=== PATIENT | male | born 1975 | race Caucasian/White ===

== ENCOUNTER → 2017-02-17 | Outpatient (CLI) | payer MEDICARE, OTHER ==
[2016-07-17 18:40] VITALS: BP 204/96
[~2017-02-17] MED LIST: ALPR0.5T PO; AMLO10TA2 PO; ASPI81TA44 PO; CLON0.5T3 PO; CYAN1TAB19 PO; ESCI20TA PO; HYDR-2666 PO; LEVO50TA5 PO; LOSA100T6 PO; METO50TA2 PO; MIRT15TA3 PO; MULT1TAB90 PO; OXYC-323 PO; SIMV40TA3 PO
--- NOTE | 2017-02-17 15:40 | KCIC ---
PQRS STATEMENT: One or more of the following in the visualized dose reduction techniques were utilized for this study: 1. Automatic exposure control, 2. Adjustment of the mA and/or kV according to patient size, 3. Use of iterative reconstruction technique CT HEAD INDICATION: Hydrocephalus COMPARISON: 01/02/2016 and 07/17/2015 TECHNIQUE: 5 mm contiguous axial images were obtained from the skull base to the vertex in both bone and soft tissue algorithm. FINDINGS: A right frontal ventricular catheter remains in stable positioning extending through the right frontal horn and foramen of Trivedi. The ventricles are unchanged in size and within normal limits. There are posterior changes of a a suboccipital craniectomy. There is no acute intracranial hemorrhage. No midline shift or mass effect. Basal cisterns are patent. Globes and orbits are within normal limits. Visualized paranasal sinuses and mastoid air cells are clear. IMPRESSION: No evidence for acute intracranial hemorrhage, mass effect, or hydrocephalus. Stable positioning of the right transforaminal ventriculostomy shunt catheter. Electronically signed by: Ede Bennett MD (02/17/2017 3:37 PM)
--- NOTE | 2017-02-17 15:42 | KCIC ---
Two view chest indication: Shunt series, headache Findings: There is a catheter overlying the right anterior chest wall shows no evidence for kinking or discontinuity. No shunt catheter is also noted which shows some surrounding calcification. Heart size is normal. Lungs are clear. IMPRESSION: No evidence for kinking or discontinuity of the ventriculostomy shunt catheter. Electronically signed by: Ede Bennett MD (02/17/2017 3:39 PM)
--- NOTE | 2017-02-17 15:43 | KCIC ---
AP and lateral skull INDICATION: Headache, shunt series FINDINGS: There is a right transfrontal ventricular ostomy shunt catheter that terminates near midline. The extracranial portions demonstrate no evidence for discontinuity or kinking. An old shunt catheter remnant is also noted in the soft tissues of the neck. IMPRESSION: No evidence for kinking or discontinuity of the ventriculostomy shunt catheter. Electronically signed by: Ede Bennett MD (02/17/2017 3:40 PM)
--- NOTE | 2017-02-17 15:46 | KCIC ---
ABDOMEN AP Clinical Indication: Shunt series. Headache. Comparison: None. Findings: There is shunt catheter coursing in the right abdomen extending into the pelvis. Distal catheter is coiled on itself. There is a second catheter that is just to the right of midline and terminates in the upper abdomen projecting just lateral to L1/L2. No discontinuity of the catheters is seen. No dilated loops of bowel are seen. The bowel gas pattern is nonobstructive. There is no acute bony abnormality. IMPRESSION: Shunt catheters in the right abdomen and pelvis. Electronically signed by: Cameron Bui MD (02/17/2017 3:43 PM)
== END | disposition home or self-care (01) ==
LOC: KCIC CT 15:01
PROVIDERS: ATTEND Neurological Surgery
DX: R51 Headache (principal)
CPT/HCPCS: 70250; 70450; 71020; 74000

== ENCOUNTER → 2017-05-05 | Outpatient (CLI) | payer MEDICARE ==
[2016-07-17 18:40] VITALS: BP 204/96
[~2017-05-05] MED LIST changes: -ESCI20TA PO; +ESCITALOPRAM OX20 MG PO; -HYDR-2666 PO; +HYDR-2758 PO
--- NOTE | 2017-05-05 11:32 | KCIC ---
PQRS Compliance Statement: One or more of the following individualized dose reduction techniques were utilized for this examination: 1. Automated exposure control 2. Adjustment of the mA and/or kV according to patient size 3. Use of iterative reconstruction technique CT HEAD WITHOUT CONTRAST History: Hydrocephalus follow-up. Comparison: CT head without contrast February 17, 2017. Procedure: Axial images are obtained of the head from the skull base through the vertex without IV contrast. Findings: Right frontal shunt catheter is stable. The ventricles are unchanged. No mass-effect, midline shift, hemorrhage, extra-axial fluid collection, or obvious acute infarction is identified. Basilar cisterns are patent. Bone windows demonstrate no acute calvarial abnormality. Redemonstrated suboccipital craniectomy. The visualized paranasal sinuses are clear. Mastoid air cells are well aerated. IMPRESSION: 1. No acute intracranial abnormality. 2. Stable right frontal shunt catheter and ventricles. Electronically signed by: Cameron Bui MD (05/05/2017 11:28 AM) [id number]
== END | disposition home or self-care (01) ==
LOC: KCIC CT 09:00
PROVIDERS: ATTEND Neurological Surgery
DX: G91.9 Hydrocephalus, unspecified (principal)
CPT/HCPCS: 70450

== ENCOUNTER → 2018-08-30 | Outpatient (CLI) | payer MEDICARE ==
[2016-07-17 18:40] VITALS: BP 204/96
[~2018-08-30] MED LIST changes: -AMLO10TA2 PO; +AMLO10TA6 PO; -ASPI81TA44 PO; +ASPI81TA59 PO; +CLON0.5T11 PO; -CLON0.5T3 PO; +CLON1TAB11 PO; -HYDR-2758 PO; +HYDR-2761 PO; +LOSA100T14 PO; -LOSA100T6 PO; +LOSA1TAB25 PO; -METO50TA2 PO; +METO50TA6 PO; +MIRT30TA3 PO; -OXYC-323 PO; +OXYC1TAB15 PO
--- NOTE | 2018-09-01 13:27 | EEG ---
DATE OF SERVICE: 08/30/2018 EEG NUMBER: [id number] OBJECTIVE: This is a 43-year-old male patient with history of seizure. EEG was requested to evaluate seizure activity. METHODS: Twenty electrodes were applied according to the international 10-20 electrode placement system. EKG monitoring, hyperventilation, intermittent photic stimulation, monopolar and bipolar montages are routinely utilized. The record was obtained on a digital system with video monitoring. FINDINGS: 1. Background: The patient was recorded in the awake and drowsy states. No actual sleep state was recorded. The overall background amplitude is 10-20 microvolts. A posterior dominant rhythm of 8 Hz is observed. 2. Abnormalities: No specific epileptiform discharge or electrographic seizure is seen. No focal or diffuse slowing. 3. Activation: Hyperventilation was performed with fair efforts and normal response. Intermittent photic stimulation was performed with photic driving. No specific epileptiform discharge or electrographic seizure induced by hyperventilation or intermittent photic stimulation. IMPRESSION: This EEG is a normal study for the awake and drowsy states. No actual sleep state was recorded. No focal, lateralizing, specific epileptiform discharge or electrographic seizure is seen. FREIDA DANIEL MD DR: NOEMI/lenin JOB#: [id number] / [id number] [id number]
== END | disposition home or self-care (01) ==
LOC: RT 09:10
PROVIDERS: ATTEND Psychiatry & Neurology Neurology
DX: R56.9 Unspecified convulsions (principal)
CPT/HCPCS: 95816

== ENCOUNTER → 2019-03-07 | Outpatient (CLI) | payer MEDICARE ==
[2016-07-17 18:40] VITALS: BP 204/96
[~2019-03-07] MED LIST changes: -AMLO10TA6 PO; +AMLO10TA8 PO
== END | disposition home or self-care (01) ==
LOC: LAB 16:26
PROVIDERS: ATTEND Psychiatry & Neurology Neurology
DX: R56.9 Unspecified convulsions (principal); Z79.899 Other long term (current) drug therapy
CPT/HCPCS: 36415; 82607; 84443